=== PATIENT | male | born 1990 | race Hispanic/Latino ===

== ENCOUNTER 2016-12-11 10:33 | Emergency (ER) | payer SELFPAY ==
[~2016-12-11] VITALS: Ht 162.6 cm; Wt 142.7 kg
[2016-12-11] MEDS ORDERED: CYCLOBENZAPR5 MG PO (10:49)
[2016-12-11] MEDS ORDERED: METFORMIN1000 MG PO (10:50)
[2016-12-11] MEDS ORDERED: GLIPIZIDE10 MG PO (10:50)
[2016-12-11 12:04] LABS: URINE BLOOD DIPSTICK NEGATIVE (NEGATIVE); URINE CLARITY CLEAR; URINE COLOR YELLOW; URINE GLUCOSE - DIPSTICK NEGATIVE (NEGATIVE); URINE KETONE NEGATIVE (NEGATIVE); URINE LEUK ESTERASE NEGATIVE (NEGATIVE); URINE NITRITE - DIPSTICK NEGATIVE (Negative); URINE PH 5.5 (4.5-8.0); URINE PROTEIN - DIPSTICK NEGATIVE (NEG-TRACE); URINE SPECIFIC GRAVITY >=1.030; URINE UROBILINOGEN - DIPSTICK 0.2 E.U./dL (0.2)
[2016-12-11 12:10] LABS: URINE BILIRUBIN - DIPSTICK SMALL (NEGATIVE)
[2016-12-11] MEDS ORDERED: NAPROSYN500 MG PO (12:35)
[2016-12-11 13:07] VITALS: BP 119/77
== END 2016-12-11 13:07 | disposition home or self-care (01) | DRG 204 ==
LOC: ED 10:33
PROVIDERS: Emergency Medicine
DX: R07.81 Pleurodynia (principal); E11.9 Type 2 diabetes mellitus without complications; Z79.84 Long term (current) use of oral hypoglycemic drugs

== ENCOUNTER 2021-01-09 16:00 | Observation (INO) | payer OTHER ==
[~2021-01-09] VITALS: Ht 162.6 cm; Wt 133.0 kg
[~2021-01-09 16:00] MED LIST: AMARYL4 MG PO; CYCLOBENZAPR5 MG PO; METFORMIN HYDR850 MG PO; NAPROSYN500 MG PO
--- NOTE | 2021-01-09 16:00 | NUR ---
PT TO ROOM FOR TRIAGE VIA EMS STRETCHER
[2021-01-09 16:54] LABS: HEMATOCRIT 41.7 % (39.0-50.0); HEMOGLOBIN 14.4 g/dl (14.0-18.0); IMMATURE GRANULOCYTES 0.2 % (0.0-5.0); MEAN CELL VOLUME 83.7 fL CALC (80.0-100.0); MEAN CORPUSCULAR HGB 28.9 pG CALC (26.0-32.0); MEAN CORPUSCULAR HGB CONC 34.5 g/dL CAL (32.0-36.0); NEUT# 3.61 thou/uL (1.82-7.42); RED BLOOD COUNT 4.98 mill/uL (4.70-6.10); RED CELL DISTRI WIDTH 11.7 % (11.5-15.5)
[2021-01-09 17:12] LABS: D-DIMER 0.87 mg/L (0.19-0.60)
[2021-01-09 17:13] LABS: ALBUMIN 4.2 g/dL (3.2-5.0); ALKALINE PHOSPHATASE 98 u/l (38-126); BILIRUBIN, TOTAL 0.5 mg/dL (0.0-1.4); BUN 11 mg/dL (9-20); BUN/CREATININE RATIO 23 (12-20 (CALC)); CARBON DIOXIDE 19 mmol/l (22-30); CHLORIDE 100 mmol/l (95-108); CREATININE 0.5 mg/dL (0.7-1.3); GFR > 60 ML/MIN (>=60 (CALC)); GFR FOR AFR.AMER. > 60 ML/MIN (>=60 (CALC)); LIPASE 211 u/l (23-300); POTASSIUM 3.6 mmol/l (3.5-5.1); TOTAL PROTEIN 8.2 g/dL (6.3-8.2)
[2021-01-09 17:15] LABS: ANION GAP 16 (6-22 (CALC)); SGOT/AST 208 u/l (17-59); SODIUM 131 mmol/l (137-146)
[2021-01-09 17:18] LABS: ACT PARTIAL THROMBO TIME 25.3 SECONDS (20.0-32.5); INTERNATIONAL NORMALIZED RATIO 1.1 RATIO (0.7-1.3); PROTHROMBIN TIME 11.6 SECONDS (9.0-12.5)
--- NOTE | 2021-01-09 18:18 | NUR ---
PT RETURNED FROM XRAY DEPT. PT ON 2L OXYGEN SAT 98%
--- NOTE | 2021-01-09 19:52 | NUR ---
PT AWAITING A BED ASSIGNMENT, GIVEN FOOD AND FLUIDS AND MADE COMFORTABLE
--- NOTE | 2021-01-09 21:32 | NUR ---
PT RESTING IN BED, VSS, NO COMPLAINTS AT THIS TIME
--- NOTE | 2021-01-09 22:05 | NUR ---
PT RESTING QUIETLY, NO COMPLAINTS VOICED, VSS
--- NOTE | 2021-01-09 23:19 | NUR ---
PT RESTING COMFORTABLY, DRY COUGH NOTED, HOOKED UP TO TELE/MONITOR
--- NOTE | 2021-01-10 01:00 | NUR ---
PT CONTINUES TO REST IN ROOM, NO COMPLAINTS VOICED, VSS
--- NOTE | 2021-01-10 03:36 | NUR ---
PT CONTINUES TO REST QUIETLY, ABLE TO MAKE NEEDS KNOWN, NO COMPLAINTS VOICED AT THIS TIME.
[2021-01-10 06:51] LABS: HEMATOCRIT 44.4 % (39.0-50.0); IMMATURE GRANULOCYTES 0.2 % (0.0-5.0); MEAN CELL VOLUME 85.9 fL CALC (80.0-100.0); MEAN CORPUSCULAR HGB CONC 33.8 g/dL CAL (32.0-36.0); NEUT# 3.56 thou/uL (1.82-7.42); RED BLOOD COUNT 5.17 mill/uL (4.70-6.10); RED CELL DISTRI WIDTH 11.8 % (11.5-15.5)
--- NOTE | 2021-01-10 07:00 | NUR ---
REPORT GIVEN TO ONCOMING SHIFT, CHARGE NURSE TOOK REPORT
[2021-01-10 07:16] LABS: ALBUMIN 3.9 g/dL (3.2-5.0); ALKALINE PHOSPHATASE 85 u/l (38-126); BILIRUBIN, TOTAL 0.5 mg/dL (0.0-1.4); BUN 12 mg/dL (9-20); BUN/CREATININE RATIO 24 (12-20 (CALC)); CHLORIDE 102 mmol/l (95-108); CREATININE 0.5 mg/dL (0.7-1.3); GFR > 60 ML/MIN (>=60 (CALC)); GFR FOR AFR.AMER. > 60 ML/MIN (>=60 (CALC)); POTASSIUM 4.3 mmol/l (3.5-5.1); SGOT/AST 122 u/l (17-59); SODIUM 136 mmol/l (137-146); TOTAL PROTEIN 7.4 g/dL (6.3-8.2)
[2021-01-10 07:19] LABS: ANION GAP 14 (6-22 (CALC)); CARBON DIOXIDE 24 mmol/l (22-30)
[2021-01-10 07:30] LABS: C-REACTIVE PROTEIN 17.5 mg/dL (0-0.9)
--- NOTE | 2021-01-10 10:00 | NUR ---
PT RESTING IN BED, 94% ON ROOM AIR, AOX3, VSS WITH NO COMPLAINTS AT THIS TIME
[2021-01-10] MEDS ORDERED: AMARYL1 M1 PO (11:09)
--- NOTE | 2021-01-10 15:34 | NUR ---
PT IN RESTING IN BED, MADE COMFORTABLE, VSS, AOX3, NO COMPLAINTS OF PAIN
--- NOTE | 2021-01-10 17:51 | NUR ---
GAVE REPORT TO TALYA RN, PT MEDICATED WITH INSULIN AND TELEMETRY HOOKED UP
--- NOTE | 2021-01-10 18:00 | NUR ---
Admission Note Report Given to: Transported by: X Wheelchair Stretcher Transported with: X Nurse Transporter X Patent IV O2 X Stud Driver Location: ICU X MS2 PT TO ROOM IN STABLE CONDITION.
--- NOTE | 2021-01-10 18:05 | NUR ---
PATIENT ARRIVED UP TO FLOOR AT THIS TIME VIA WHEELCHAIR. PATIENT HAS LEFT AC IV THAT WAS DISLODGED AND WAS PULLED AT THIS TIME. NIEVES BENNETT REPORTED TO THIS NURSE THAT PATIENTS 1400 REMDESIVIR WAS FOUND NOT COMPLETELY INFUSED AND WAS CURRENTLY RUNNING IN AT THIS TIME. IN PATIENT EMS SITE IN LEFT HAND. NEW IV WAS STARTED BY THIS NURSE IN PATIENT RIGHT HAND A #22 AUTO GUARD AT THIS TIME EMS SITE WAS REMOVED. PATIENT WAS NOTED TO HAVE A TEMP OF 101.2 AT THIS TIME, PATIENT IS ON ROOM AIR, PATIENT DOES EXHIBIT SHORTNESS OF BREATH AND DRY NON PRODUCTIVE COUGH IS NOTED. PATIENT SPO2 IS AT 95% ON ROOM AIR. PATIENT DENIES ANY PAIN. PATIENT GIVEN ROOM ORIENTATION. SIDERAILS ARE UP CALL LIGHT WITHIN REACH.
[2021-01-10 18:12] VITALS: BP 144/83
--- NOTE | 2021-01-10 18:23 | NUR ---
PATIENT GIVEN 650MG OF TYLENOL AT THIS TIME FOR TEMP OF 101.2 WILL CONTINUE TO MONITOR.
[2021-01-10 19:33] VITALS: BP 137/80
--- NOTE | 2021-01-10 19:45 | NUR ---
PATIENT ALERT AND ORIENTED X3. ABLE TO MAKE NEEDS KNOWN, BUT DOES HAVE A LANGUAGE BARRIER SPEAKING MAINLY [place]. ASSESSMENT DONE. PATIENT ONLY HAS BODY ACHES WHEN HE COUGHS. APPEARS ANXIOUS DUE TO AND CHILDREN AT HOME WITH COVID AND ALSO DUE TO HIS CONDITION BEING HERE WITH COVID. PLAN OF CARE WAS DISCUSSED WITH PATIENT TO HELP DECREASE HIS LEVEL OF ANXIETY. PATIENT UNDERSTOOD. PATIENT USES URINAL WHEN NEEDED AND AMBULATES TO RESTROOM IF NEED TO HAVE BM. IV SITE TO RIGHT HAND APPEARS PATENT WITH IVF RUNNING AT 75ML/HR. BED IN LOWEST POSITION. CALL LIGHT AND BELONGINGS WITHIN REACH.
[2021-01-11 00:24] VITALS: BP 103/48
--- NOTE | 2021-01-11 01:35 | NUR ---
PATIENT RECEIVED PRN TYLENOL FOR TEMP OF 101.5. TEMP WAS RECHECKED AT ACCURATE TIME AND DECREASED TO 98.9. OXYGEN WAS ALSO RECHECKED AND WAS AT 96% ON RA.
[2021-01-11 04:00] VITALS: BP 137/78
--- NOTE | 2021-01-11 04:53 | NUR ---
PATIENT RECEIVED PRN COUGH MEDICATION PER REQUEST. NO OTHER COMPLAINTS VOICED AT THIS TIME. CALL LIGHT REMAINS WITHIN REACH.
[2021-01-11 06:11] LABS: HEMATOCRIT 39.2 % (39.0-50.0); HEMOGLOBIN 13.4 g/dl (14.0-18.0); IMMATURE GRANULOCYTES 0.2 % (0.0-5.0); MEAN CELL VOLUME 85.4 fL CALC (80.0-100.0); MEAN CORPUSCULAR HGB 29.2 pG CALC (26.0-32.0); MEAN CORPUSCULAR HGB CONC 34.2 g/dL CAL (32.0-36.0); NEUT# 4.32 thou/uL (1.82-7.42); RED BLOOD COUNT 4.59 mill/uL (4.70-6.10); RED CELL DISTRI WIDTH 11.8 % (11.5-15.5)
[2021-01-11 06:28] LABS: ALBUMIN 3.4 g/dL (3.2-5.0); ALKALINE PHOSPHATASE 76 u/l (38-126); ANION GAP 14 (6-22 (CALC)); BILIRUBIN, TOTAL 0.5 mg/dL (0.0-1.4); BUN 13 mg/dL (9-20); BUN/CREATININE RATIO 25 (12-20 (CALC)); CARBON DIOXIDE 23 mmol/l (22-30); CHLORIDE 101 mmol/l (95-108); CREATININE 0.5 mg/dL (0.7-1.3); GFR > 60 ML/MIN (>=60 (CALC)); GFR FOR AFR.AMER. > 60 ML/MIN (>=60 (CALC)); POTASSIUM 3.7 mmol/l (3.5-5.1); SGOT/AST 55 u/l (17-59); SODIUM 134 mmol/l (137-146); TOTAL PROTEIN 6.8 g/dL (6.3-8.2)
--- NOTE | 2021-01-11 07:00 | NUR ---
RECIEVED REPORT FROM SABRINA STEPHENSON
[2021-01-11 08:15] VITALS: BP 129/70
--- NOTE | 2021-01-11 08:24 | NUR ---
PT SITTING UP IN CHAIR. PT IS A/O X3 AND MOSTLY [place] SPEAKING. ASSESSMENT AND VITALS COMPLETED. BP129/70, HR 95, O2 96% ON ROOM AIR. RESPIRATIONS ARE EVEN AND UNLABORED WITH NO DISTRESS NOTED.NONPRODUCTIVE COUGH NOTED. LUNG SOUNDS DIMINISHED.I.S AT BEDSIDE,[id number]. HEART RHYTHM NORMAL WITH TELE IN PLACE. BOWEL SOUNDS ARE ACTIVE. PULSES STRONG. #22G RH OCCULDED, NEW IV TO BE STARTED.PT DENIES OF ANY PAINS OR DISCOMFORTS AT THIS TIME. ALL SAFETY PRECAUTIONS ARE IN PLACE WITH CALL LIGHT IN REACH. AIR/CONTACT PRECAUTIONS ARE IN PLACE. WILL CONTINUE TO MONITOR.
--- NOTE | 2021-01-11 09:50 | NUR ---
NEW #22G RAC STARTED, SITE REMAINS HEALTHY AND PATENT. IVF INFUSING PER ORDER, SITE REMAINS HELATHY AND PATENT.
--- NOTE | 2021-01-11 10:50 | NUR ---
DR EWING AND JORDON,ANRP AT BEDSIDE
--- NOTE | 2021-01-11 12:36 | NUR ---
PT SITTING UP IN REYCLINER ON CELL PHONE. RESPIRATIONS REMAINS EVEN AND UNLABORED WITH NO DISTRESS NOTED ON ROOM AIR. #22G RAC INFUSING WITH IVF PER ORDER, SITE REMAINS HEALTHY AND PATENT. TELE MONITORING IN PLACE. FRESH WATER ADMINISTERED. PT DENIES OF ANY PAINS OR DISCOMFORTS AT THIS TIME. ALL SAFETY PRECAUTIONS ARE IN PLACE WITH CALL LIGHT IN REACH. AIR/CONTACT PRECAUTIONS ARE IN PLACE.WILL CONTINUE TO MONITOR.
--- NOTE | 2021-01-11 15:40 | NUR ---
PT UP WALKING AROUND ROOM. RESPIRATIONAS ARE EVEN AND UNLABORED WITH NO DISTRESS NOTED. #22G RAC REMAINS IN PLACE. PT REQUEST TO SHOWER. PT SET UP TO SHOWER. ER NOTIFIED. ALL SAFETAY PRECAUTIONS ARE IN PLACE WITH CALL LIGHT IN REACH. WILL CONTINUE TO MONITOR.
[2021-01-11 15:50] VITALS: BP 140/75
[2021-01-11 19:00] VITALS: BP 117/62
--- NOTE | 2021-01-11 20:36 | NUR ---
PATIENT SITTING UP IN THE CHAIR AT THIS TIME-PATIENT ON RA WITH O2 SAT OF 95%. PATIENT WITH NON-PRODUCTIVE COUGH. ALERT AND ORIENTEDX3. TELE MONITOR IN PLACE WITH LAST READING SR-93. IVF NS PATENT AND INFUSING VIA RAC SITE AT KVO RATE. AZITHRO HUNG ORDERED. LOVENOX GIVEN ORDERED LEFT ABD. VOIDING QS AIDEE URINE IN URINAL.PATIENT ON ISOLATION FOR COVID. ENCOURAGED USE OF THE IS Q1H WHILE AWAKE. PATIENT IS ABLE TO DEMONSTRATE PROPER USE OF THE DEVICE. LUNGS ARE DIMINISHED BUT CLEAR. SAFETY PRECAUTIONS REINFORCED. CALL LIGHT IN REACH.
--- NOTE | 2021-01-11 21:37 | NUR ---
RESTING IN BED-ACCUCHECK WAS 250-MEDICATED WITH HUMALOG 4UNITS SQ PER SLIDING SCALE COVERAGE PROTOCOL. HS SNACK OF PEARS PROVIDED. NO COMPLANINTS AT THIS TIME. CALL LIGHT IN REACH. WILL CONT TO MONITOR.
[2021-01-12] VITALS: BP 145/93
--- NOTE | 2021-01-12 | NUR ---
PATIENT RESTING IN BED AT THIS TIME-EYES CLOSED AND RESPS ARE EVEN AND UNLABORED. O2 SATS ARE 94% ON ROOM AIR. TELE MONITOR IN PLACE. LAST READING WAS SR-90. CALL LIGHT IN REACH. WILL CONT TO MONITOR,
[2021-01-12 04:00] VITALS: BP 114/57
--- NOTE | 2021-01-12 04:32 | NUR ---
PATIENT APPEARS SLEEPING POSITIONED ON HIS LEFT SIDE WITH EYES CLOSED. RESPS ARE EVEN AND HEAVY. O2 SAT IS 94% ON RA. TELE MONITOR IN PLACE. CALL LIGHT IN REACH. WILL CONT TO MONITOR.
[2021-01-12 06:20] LABS: HEMATOCRIT 39.6 % (39.0-50.0); HEMOGLOBIN 13.4 g/dl (14.0-18.0); IMMATURE GRANULOCYTES 0.2 % (0.0-5.0); MEAN CORPUSCULAR HGB 28.8 pG CALC (26.0-32.0); MEAN CORPUSCULAR HGB CONC 33.8 g/dL CAL (32.0-36.0); NEUT# 4.16 thou/uL (1.82-7.42); RED BLOOD COUNT 4.66 mill/uL (4.70-6.10); RED CELL DISTRI WIDTH 11.8 % (11.5-15.5)
[2021-01-12 06:30] LABS: ALBUMIN 3.4 g/dL (3.2-5.0); ALKALINE PHOSPHATASE 71 u/l (38-126); ANION GAP 14 (6-22 (CALC)); BILIRUBIN, TOTAL 0.5 mg/dL (0.0-1.4); BUN 13 mg/dL (9-20); BUN/CREATININE RATIO 29 (12-20 (CALC)); C-REACTIVE PROTEIN 8.6 mg/dL (0-0.9); CARBON DIOXIDE 22 mmol/l (22-30); CHLORIDE 103 mmol/l (95-108); CREATININE 0.5 mg/dL (0.7-1.3); GFR > 60 ML/MIN (>=60 (CALC)); GFR FOR AFR.AMER. > 60 ML/MIN (>=60 (CALC)); POTASSIUM 3.9 mmol/l (3.5-5.1); SGOT/AST 37 u/l (17-59); SODIUM 135 mmol/l (137-146); TOTAL PROTEIN 6.7 g/dL (6.3-8.2)
[2021-01-12 07:45] VITALS: BP 118/62
--- NOTE | 2021-01-12 08:00 | NUR ---
PATIENT IS ALERT, VERBAL, ABLE TO MAKE NEEDS KNOWN. ABLE TO TOLERATE MEDS WELL WHOLE. FSBS ORDERED WITH SSI PRN--NO S/S OF GLYCEMIC REACTION NOTED. CONT ON IV ABT THERAPY RELATED TO COVID PNEUMONIA WITH NO SIDE EFFECTS NOTED--AFEBRILE. PIV SITE PATENT TO [facility]--FLUSHES WELL--SITE UNREMARKABLE. NS INFUSING WITHOUT DIFFICULTY @ 20ML/HR KV0--TOLERATING FLUIDS WELL. CONT OF BOWEL AND BLADDER--OUT OF BED INDEPENDENTLY TO AND FROM --USES URINAL AT NIGHT--ENCOURAGED TO CALL FOR ASSIST WHEN NEEDED. DENIES PAIN AT THIS TIME. USING INCENTIVE SPIROMETER ORDERED. NO EPISODES OF ANXIETY NOTED THUS FAR IN SHIFT. WILL CONT TO MONITOR FOR ANY FURTHER CHANGES.
[2021-01-12 11:09] VITALS: BP 119/73
--- NOTE | 2021-01-12 11:23 | NUR ---
6 minute walk test completed-- @ start of test 94% on RA--maintained during and after walk at a range of 93-95%--no SOB noted or voiced--tolerated well.
[2021-01-12] MEDS ORDERED: ASPIRIN REGULA325 M1 PO (11:55)
[2021-01-12] MEDS ORDERED: ZITHROMAX250 MG PO (11:55)
[2021-01-12] MEDS ORDERED: DEXAMETHASON6 MG PO (11:55)
--- NOTE | 2021-01-12 12:00 | NUR ---
PATIENT VOICES NO COMPLAINTS OF PAIN OR DISOCMFORT AT THIS TIME. BS @ 11AM--268--RECEIVED SSI COVERAGE ORDERED--NO S/S OF GLYCEMIC REACTION NOTED. CONTINUES TO USE INCENTIVE SPIROMETER NEEDED. PIV SITE PATENT TO RIGHT AC--FLUSHES WELL--NS INFUSING KVO @ 20ML/HR--TOLERATING FLUIDS WELL--TO RECEIVE 2PM REMDESIVIR BEFORE DISCHARGING HOME THIS AFTERNOON. WILL CONT TO MONITOR FOR ANY FURTHER CHANGES.
[2021-01-12 14:50] VITALS: BP 140/76
--- NOTE | 2021-01-12 16:15 | NUR ---
Discharge instructions given. Patient verbalizes understanding of same. Discharged in \good condition via Wheelchair to Home with family. All belongings sent with pt. Patient given scripts for ABT/steroids/and ASA to have courses finished at home as ordered.
== END 2021-01-12 16:15 | disposition home or self-care (01) | DRG 177 ==
LOC: ED 16:00 → ED-I 18:25 → ED 18:37 → ED-I 18:38 → MS2 01-10 17:04
PROVIDERS: Nurse Practitioner; ADMIT Internal Medicine; ATTEND Internal Medicine
PROC: XW033E5 Introduction of Remdesivir Anti-infective into Peripheral Vein, Percutaneous Approach, New Technology Group 5 (ICD-10-PCS; principal; 2021-01-10)
DX: U07.1 COVID-19 (principal); J12.82 Pneumonia due to coronavirus disease 2019; Z68.42 Body mass index [BMI] 45.0-49.9, adult; E87.1 Hypo-osmolality and hyponatremia; R09.02 Hypoxemia; E11.9 Type 2 diabetes mellitus without complications; E66.01 Morbid (severe) obesity due to excess calories; K76.0 Fatty (change of) liver, not elsewhere classified; R16.0 Hepatomegaly, not elsewhere classified; Z79.84 Long term (current) use of oral hypoglycemic drugs
CPT/HCPCS: G0378; J1650

== ENCOUNTER 2021-12-24 01:09 | Emergency (ER) | payer SELFPAY ==
[~2021-12-24] VITALS: Ht 162.6 cm; Wt 115.9 kg
[~2021-12-24 01:09] MED LIST changes: +AMARYL1 M1 PO; +ASPIRIN REGULA325 M1 PO; +DEXAMETHASON6 MG PO; +ZITHROMAX250 MG PO
[2021-12-24 02:14] LABS: HEMATOCRIT 37.9 % (39.0-50.0); HEMOGLOBIN 13.4 g/dl (14.0-18.0); IMMATURE GRANULOCYTES 0.4 % (0.0-5.0); MEAN CELL VOLUME 84.6 fL CALC (80.0-100.0); MEAN CORPUSCULAR HGB 29.9 pG CALC (26.0-32.0); MEAN CORPUSCULAR HGB CONC 35.4 g/dL CAL (32.0-36.0); NEUT# 8.55 thou/uL (1.82-7.42); RED BLOOD COUNT 4.48 mill/uL (4.70-6.10); RED CELL DISTRI WIDTH 12.3 % (11.5-15.5)
[2021-12-24 02:20] LABS: ALBUMIN 3.7 g/dL (3.2-5.0); ALKALINE PHOSPHATASE 83 u/l (38-126); ANION GAP 14 (6-22 (CALC)); BUN 10 mg/dL (9-20); BUN/CREATININE RATIO 17 (12-20 (CALC)); CARBON DIOXIDE 21 mmol/l (22-30); CHLORIDE 107 mmol/l (95-108); CREATININE 0.6 mg/dL (0.7-1.3); GFR FOR AFR.AMER. > 60 ML/MIN (>=60 (CALC)); GFR OTHER RACES > 60 ML/MIN (>=60 (CALC)); POTASSIUM 3.8 mmol/l (3.5-5.1); SGOT/AST 30 u/l (17-59); SODIUM 138 mmol/l (137-146)
[2021-12-24 02:26] LABS: URINE BILIRUBIN - DIPSTICK NEGATIVE (NEGATIVE); URINE BLOOD DIPSTICK TRACE-INTACT (NEGATIVE); URINE COLOR YELLOW; URINE GLUCOSE - DIPSTICK NEGATIVE (NEGATIVE); URINE KETONE NEGATIVE (NEGATIVE); URINE SPECIFIC GRAVITY 1.015; URINE UROBILINOGEN - DIPSTICK 0.2 E.U./dL (0.2)
[2021-12-24 02:30] LABS: BILIRUBIN, TOTAL 0.8 mg/dL (0.0-1.4)
[2021-12-24 02:31] LABS: MYOGLOBIN 13 ng/mL (0 - 121)
[2021-12-24 02:35] LABS: URINE LEUK ESTERASE SMALL (NEGATIVE); URINE NITRITE - DIPSTICK NEGATIVE (Negative)
[2021-12-24 02:36] LABS: URINE PROTEIN - DIPSTICK NEGATIVE (NEG-TRACE)
[2021-12-24 02:37] LABS: URINE BACTERIA MANY hpf; URINE EPITHELIAL CELLS MODERATE EPI/hpf (0-FEW); URINE WBC 50-100 WBC/hpf (0-5)
[2021-12-24 02:38] LABS: URINE MUCUS FEW hpf (NONE-FEW); URINE YEAST FEW hpf
[2021-12-24 04:16] LABS: TSH, 3RD GENERATION 1.16 uIU/mL (0.47 - 4.68)
[2021-12-24] MEDS ORDERED: CEPHALEXIN500 MG PO (04:28)
[2021-12-24] MEDS ORDERED: PYRIDIUM200 MG PO (04:28)
[2021-12-24 04:55] VITALS: BP 135/83
== END 2021-12-24 04:55 | disposition home or self-care (01) | DRG 690 ==
LOC: ED 01:09
PROVIDERS: Emergency Medicine
DX: N39.0 Urinary tract infection, site not specified (principal); B96.20 Unspecified Escherichia coli [E. coli] as the cause of diseases classified elsewhere; E11.9 Type 2 diabetes mellitus without complications; Z79.84 Long term (current) use of oral hypoglycemic drugs; Z20.822 Contact with and (suspected) exposure to COVID-19

== ENCOUNTER 2023-01-27 11:06 | Emergency (ER) | payer SELFPAY ==
[~2023-01-27] VITALS: Ht 162.6 cm; Wt 141.0 kg
[~2023-01-27 11:06] MED LIST changes: +CEPHALEXIN500 MG PO; +PYRIDIUM200 MG PO
[2023-01-27 11:40] LABS: URINE BILIRUBIN - DIPSTICK Negative (NEGATIVE); URINE BLOOD DIPSTICK Trace-lysed (NEGATIVE); URINE GLUCOSE - DIPSTICK 100 mg/dL (NEGATIVE); URINE KETONE Negative (NEGATIVE); URINE NITRITE - DIPSTICK Negative (Negative); URINE PROTEIN - DIPSTICK Negative (NEG-TRACE); URINE SPECIFIC GRAVITY <=1.005; URINE UROBILINOGEN - DIPSTICK 0.2 E.U./dL (0.2)
[2023-01-27 11:41] LABS: URINE COLOR Yellow; URINE LEUK ESTERASE Small (NEGATIVE)
[2023-01-27 11:49] LABS: BASO% 0.2 % (0-3); EOS% 1.7 % (0-8); HEMATOCRIT 38.5 % (39.0-50.0); HEMOGLOBIN 13.1 g/dl (14.0-18.0); IMMATURE GRANULOCYTES 0.3 % (0.0-5.0); LYMPH% 15.4 % (15-41); MEAN CELL VOLUME 84.1 fL CALC (80.0-100.0); MEAN CORPUSCULAR HGB 28.6 pG CALC (26.0-32.0); MONO% 4.4 % (2-13); NEUT# 9.77 thou/uL (1.82-7.42); RED BLOOD COUNT 4.58 mill/uL (4.70-6.10); RED CELL DISTRI WIDTH 12.7 % (11.5-15.5)
[2023-01-27 11:58] LABS: URINE RBC 0-2 RBC/hpf (0-5)
[2023-01-27 11:59] LABS: URINE BACTERIA MODERATE hpf
[2023-01-27 12:05] LABS: ALBUMIN 3.9 g/dL (3.2-5.0); ALKALINE PHOSPHATASE 105 u/l (38-126); ANION GAP 14 (6-22 (CALC)); BUN 9 mg/dL (9-20); BUN/CREATININE RATIO 16 (12-20 (CALC)); CARBON DIOXIDE 19 mmol/l (22-30); CHLORIDE 101 mmol/l (95-108); CREATININE 0.6 mg/dL (0.7-1.3); GFR FOR AFR.AMER. > 60 ML/MIN (>=60 (CALC)); GFR OTHER RACES > 60 ML/MIN (>=60 (CALC)); POTASSIUM 3.3 mmol/l (3.5-5.1); SGOT/AST 31 u/l (17-59); SODIUM 132 mmol/l (137-146)
[2023-01-27] MEDS ORDERED: KEFLEX500 MG PO (13:44)
[2023-01-27 14:04] VITALS: BP 121/76
== END 2023-01-27 14:09 | disposition home or self-care (01) | DRG 690 ==
LOC: ED 11:06
PROVIDERS: Emergency Medicine
DX: N30.01 Acute cystitis with hematuria (principal); B96.20 Unspecified Escherichia coli [E. coli] as the cause of diseases classified elsewhere; R10.32 Left lower quadrant pain

== ENCOUNTER 2023-05-06 19:11 | Emergency (ER) | payer SELFPAY ==
[2023-05-06] VITALS (12 sets, daily range): BP systolic 107–123; BP diastolic 58–76
[~2023-05-06] VITALS: Ht 162.6 cm; Wt 144.4 kg
[~2023-05-06 19:11] MED LIST changes: +KEFLEX500 MG PO
[2023-05-06] MEDS ORDERED: PAROXETINE20 MG PO (19:38)
[2023-05-06] MEDS ORDERED: LOPRESSOR25 M1 PO (19:38)
[2023-05-06 22:52] LABS: BASO% 0.3 % (0-3); EOS% 3.2 % (0-8); HEMATOCRIT 40.6 % (39.0-50.0); HEMOGLOBIN 13.4 g/dl (14.0-18.0); IMMATURE GRANULOCYTES 0.2 % (0.0-5.0); LYMPH% 42.8 % (15-41); MEAN CELL VOLUME 85.3 fL CALC (80.0-100.0); MEAN CORPUSCULAR HGB 28.2 pG CALC (26.0-32.0); MONO% 4.9 % (2-13); NEUT# 4.99 thou/uL (1.82-7.42); NEUT% 48.6 % (42-76); RED BLOOD COUNT 4.76 mill/uL (4.70-6.10); RED CELL DISTRI WIDTH 12.8 % (11.5-15.5)
[2023-05-06 23:03] LABS: ALBUMIN 4.3 g/dL (3.2-5.0); ALKALINE PHOSPHATASE 79 u/l (38-126); BUN 14 mg/dL (9-20); BUN/CREATININE RATIO 26 (12-20 (CALC)); CARBON DIOXIDE 21 mmol/l (22-30); CHLORIDE 106 mmol/l (95-108); CREATININE 0.6 mg/dL (0.7-1.3); GFR FOR AFR.AMER. > 60 ML/MIN (>=60 (CALC)); GFR OTHER RACES > 60 ML/MIN (>=60 (CALC)); TOTAL PROTEIN 7.4 g/dL (6.3-8.2)
[2023-05-06 23:07] LABS: ANION GAP 16 (6-22 (CALC)); BILIRUBIN, TOTAL 0.5 mg/dL (0.2-1.3); SGOT/AST 72 u/l (17-59); SODIUM 139 mmol/l (137-146)
[2023-05-06] MEDS ORDERED: AMOX/K CLAV875 M1 PO (23:12)
[2023-05-06 23:31] LABS: URINE BILIRUBIN - DIPSTICK Negative (NEGATIVE); URINE BLOOD DIPSTICK Negative (NEGATIVE); URINE GLUCOSE - DIPSTICK Negative (NEGATIVE); URINE KETONE Trace mg/dL (NEGATIVE); URINE LEUK ESTERASE Negative (NEGATIVE); URINE NITRITE - DIPSTICK Negative (Negative); URINE PROTEIN - DIPSTICK Negative (NEG-TRACE); URINE SPECIFIC GRAVITY 1.025
[2023-05-06 23:32] LABS: URINE COLOR Yellow
[2023-05-07 00:37] VITALS: BP 117/72
== END 2023-05-07 00:50 | disposition home or self-care (01) | DRG 153 ==
LOC: ED 19:11
PROVIDERS: Emergency Medicine
DX: J02.0 Streptococcal pharyngitis (principal); E11.9 Type 2 diabetes mellitus without complications; E66.01 Morbid (severe) obesity due to excess calories; Z79.84 Long term (current) use of oral hypoglycemic drugs; Z20.822 Contact with and (suspected) exposure to COVID-19

== ENCOUNTER 2023-05-27 10:11 | Emergency (ER) | payer SELFPAY ==
[~2023-05-27] VITALS: Ht 162.6 cm; Wt 136.0 kg
[2023-05-27] VITALS (14 sets, daily range): BP systolic 99–123; BP diastolic 54–82
[~2023-05-27 10:11] MED LIST changes: +AMOX/K CLAV875 M1 PO; +LOPRESSOR25 M1 PO; +PAROXETINE20 MG PO
[2023-05-27 11:47] LABS: BASO% 0.2 % (0-3); EOS% 0.1 % (0-8); HEMOGLOBIN 14.7 g/dl (14.0-18.0); IMMATURE GRANULOCYTES 0.3 % (0.0-5.0); MEAN CELL VOLUME 85.3 fL CALC (80.0-100.0); MEAN CORPUSCULAR HGB 28.5 pG CALC (26.0-32.0); MEAN CORPUSCULAR HGB CONC 33.4 g/dL CAL (32.0-36.0); MONO% 4.5 % (2-13); NEUT# 11.72 thou/uL (1.82-7.42); NEUT% 85.9 % (42-76); RED BLOOD COUNT 5.16 mill/uL (4.70-6.10); RED CELL DISTRI WIDTH 12.6 % (11.5-15.5)
[2023-05-27 12:13] LABS: D-DIMER 1.69 mg/L (0.19-0.60)
[2023-05-27 12:14] LABS: INTERNATIONAL NORMALIZED RATIO 1.3 RATIO (0.7-1.3)
[2023-05-27 12:15] LABS: ALBUMIN 4.5 g/dL (3.2-5.0); ALKALINE PHOSPHATASE 79 u/l (38-126); ANION GAP 17 (6-22 (CALC)); BILIRUBIN, TOTAL 0.6 mg/dL (0.2-1.3); BUN 11 mg/dL (9-20); BUN/CREATININE RATIO 15 (12-20 (CALC)); CARBON DIOXIDE 19 mmol/l (22-30); CHLORIDE 105 mmol/l (95-108); CREATININE 0.7 mg/dL (0.7-1.3); GFR FOR AFR.AMER. > 60 ML/MIN (>=60 (CALC)); GFR OTHER RACES > 60 ML/MIN (>=60 (CALC)); POTASSIUM 3.4 mmol/l (3.5-5.1); SGOT/AST 45 u/l (17-59); SODIUM 138 mmol/l (137-146); TOTAL PROTEIN 8.1 g/dL (6.3-8.2)
[2023-05-27] MEDS ORDERED: ZOFRAN4 MG/TAB PO (15:35)
[2023-05-27] MEDS ORDERED: IBUPROFEN600 MG PO (15:35)
== END 2023-05-27 16:03 | disposition home or self-care (01) | DRG 866 ==
LOC: ED 10:11
PROVIDERS: Family Medicine
DX: B34.9 Viral infection, unspecified (principal); R53.1 Weakness; R53.83 Other fatigue; R11.0 Nausea

== ENCOUNTER 2023-11-17 14:09 | Emergency (ER) | payer SELFPAY ==
[~2023-11-17] VITALS: Ht 162.6 cm; Wt 290.0 kg
[~2023-11-17 14:09] MED LIST changes: +IBUPROFEN600 MG PO; +ZOFRAN4 MG/TAB PO
[2023-11-17] MEDS ORDERED: KETOROLAC TROMETHAMINE 30 MG/ML SDV IV ONE (14:35)
[2023-11-17] MEDS ORDERED: SODIUM CHLORIDE 0.9% 1,000 ML IV ONE (14:40)
[2023-11-17 15:20] VITALS: BP 124/71
[2023-11-17 15:26] LABS: BASO% 0.2 % (0-3); EOS% 1.4 % (0-8); HEMATOCRIT 40.2 % (39.0-50.0); HEMOGLOBIN 13.3 g/dl (14.0-18.0); IMMATURE GRANULOCYTES 0.2 % (0.0-5.0); LYMPH% 19.7 % (15-41); MEAN CELL VOLUME 86.8 fL CALC (80.0-100.0); MEAN CORPUSCULAR HGB 28.7 pG CALC (26.0-32.0); MEAN CORPUSCULAR HGB CONC 33.1 g/dL CAL (32.0-36.0); MONO% 5.5 % (2-13); NEUT# 9.03 thou/uL (1.82-7.42); RED BLOOD COUNT 4.63 mill/uL (4.70-6.10); RED CELL DISTRI WIDTH 13.3 % (11.5-15.5)
[2023-11-17 15:30] LABS: URINE BILIRUBIN - DIPSTICK Negative (NEGATIVE); URINE BLOOD DIPSTICK Moderate (NEGATIVE); URINE GLUCOSE - DIPSTICK Negative (NEGATIVE); URINE KETONE Negative (NEGATIVE); URINE NITRITE - DIPSTICK Negative (Negative); URINE PROTEIN - DIPSTICK Negative (NEG-TRACE); URINE UROBILINOGEN - DIPSTICK 0.2 E.U./dL (0.2)
[2023-11-17 15:38] LABS: ALBUMIN 4.5 g/dL (3.2-5.0); BILIRUBIN, TOTAL 0.5 mg/dL (0.2-1.3); CREATININE 0.8 mg/dL (0.7-1.3); POTASSIUM 3.6 mmol/l (3.5-5.1); TOTAL PROTEIN 8.6 g/dL (6.3-8.2)
[2023-11-17 15:40] LABS: URINE COLOR Yellow; URINE LEUK ESTERASE Large (NEGATIVE)
[2023-11-17 15:55] LABS: URINE RBC 0-2 RBC/hpf (0-5)
[2023-11-17] MEDS ORDERED: OMNICEF300 MG PO (18:15)
[2023-11-17] MEDS ORDERED: MORPHINE SULFATE 4 MG/ML VIAL IV ONE (18:15)
[2023-11-17] MEDS ORDERED: ONDANSETRON HCl 4 MG/2 ML SDV IV ONE (18:15)
[2023-11-17] MEDS ORDERED: NAPROXEN500 MG PO (18:15)
[2023-11-17] MEDS ORDERED: cefTRIAXone SODIUM 2 GM in SODIUM CHLORIDE 0.9% 100 ML IV ONE (18:15)
[2023-11-17 18:37] VITALS: BP 124/71
== END 2023-11-17 18:44 | disposition home or self-care (01) | DRG 690 ==
LOC: ED 14:09
PROVIDERS: Family Medicine
DX: N39.0 Urinary tract infection, site not specified (principal); B96.20 Unspecified Escherichia coli [E. coli] as the cause of diseases classified elsewhere; E11.9 Type 2 diabetes mellitus without complications; E66.01 Morbid (severe) obesity due to excess calories; Z79.84 Long term (current) use of oral hypoglycemic drugs
CPT/HCPCS: Q9967